=== PATIENT | female | born 1950 | race Caucasian/White ===

== ENCOUNTER 2018-08-03 03:29 | Day surgery (SDC) | payer MEDICARE, OTHER | END 2018-08-03 22:48 | disposition home or self-care (01) | LOC: MOI US 03:29 | PROC: 0HBT3ZX Excision of Right Breast, Percutaneous Approach, Diagnostic (ICD-10-PCS; principal; 2018-08-03) | DX: C50.911 Malignant neoplasm of unspecified site of right female breast (principal) | CPT/HCPCS: 19083; 19084; 77065; 88305; 88360; A4648; G0279 ==

== ENCOUNTER 2018-08-26 11:37 | Day surgery (SDC) | payer MEDICARE, OTHER ==
[~2018-08-26] VITALS: Ht 167.6 cm; Wt 68.6 kg
--- NOTE | 2018-08-26 14:00 | NUR ---
08/26/18 1400 Jace Salguero PATIENT INTO SDU, RESTING IN BED, VSS, WAITING FOR CXR. IMAGING NOTIFIED AT 1340.
== END 2018-08-26 14:25 | disposition home or self-care (01) ==
LOC: ORSCSDS 11:37
PROVIDERS: Surgery
PROC: B544ZZA Ultrasonography of Left Jugular Veins, Guidance (ICD-10-PCS; principal; 2018-08-26 13:00)
PROC: 05HN33Z Insertion of Infusion Device into Left Internal Jugular Vein, Percutaneous Approach (ICD-10-PCS; principal; 2018-08-26 13:00)
DX: C50.411 Malignant neoplasm of upper-outer quadrant of right female breast (principal); Z17.1 Estrogen receptor negative status [ER-]
CPT/HCPCS: 77001; C1788; J0690; J1642; J2001; J2250; J3010; J7120

== ENCOUNTER → 2018-09-09 | Outpatient (CLI) | payer MEDICARE, OTHER ==
[2018-09-09 09:42] LABS: Hematocrit 37.9 % (33.0-51.0); Hemoglobin 12.6 g/dL (11.5-16.0); Mean Corpuscular HGB 33.8 pg (26.0-34.0); Mean Corpuscular HGB Conc 33.2 g/dL (31.5-36.5); Mean Corpuscular Volume 102 fL (80-100); Mean Platelet Volume 10.8 fL (9.1-12.4); Platelet Count 186 K/mm3 (150-400); RDW Coefficient Variation 13.1 % (11.7-14.2); RDW Standard Deviation 48.9 fL (35.1-46.3); Red Blood Cell Count 3.73 M/mm3 (3.80-5.20); White Blood Cell Count 14.22 K/mm3 (4.00-11.30)
[2018-09-09 10:10] LABS: BAND PERCENT MAN 9 % (0-8); BASOPHILS ABSOLUTE MAN 0.14 K/mm3 (0.00-0.23); BASOPHILS PERCENT MAN 1 % (0-2); EOSINOPHILS PERCENT MAN 0 % (0-6); LYMPHOCYTES ABSOLUTE MAN 1.13 K/mm3 (0.84-5.20); LYMPHOCYTES PERCENT MAN 8 % (21-46); METAMYELOCYTE ABSOLUTE MAN 0.42 K/mm3 (0.00-0.00); METAMYELOCYTE PERCENT MAN 3 % (0-0); MONOCYTES ABSOLUTE MAN 0.71 K/mm3 (0.16-1.47); MONOCYTES PERCENT MAN 5 % (4-13); MYELOCYTE ABSOLUTE MAN 0.14 K/mm3 (0.00-0.00); MYELOCYTE PERCENT MAN 1 % (0-0); NEUTROPHILS ABSOLUTE MAN 11.66 K/mm3 (1.96-9.15); SEG NEUTROPHILS PERCENT MAN 73 % (41-73); TOTAL CELLS COUNTED 100
== END | disposition home or self-care (01) ==
LOC: LAB SHORT 09:13 → LAB 09:13
PROVIDERS: Internal Medicine Hematology & Oncology
DX: C50.919 Malignant neoplasm of unspecified site of unspecified female breast (principal); D69.59 Other secondary thrombocytopenia; D70.1 Agranulocytosis secondary to cancer chemotherapy; T45.1X5A Adverse effect of antineoplastic and immunosuppressive drugs, initial encounter; Z17.1 Estrogen receptor negative status [ER-]
CPT/HCPCS: 85025

== ENCOUNTER → 2018-10-20 | Outpatient (CLI) | payer MEDICARE, OTHER | END | disposition home or self-care (01) | LOC: LAB EV 09:53 → LAB SHORT 09:53 | DX: N39.0 Urinary tract infection, site not specified (principal) | CPT/HCPCS: 87077; 87086; 87186 ==

== ENCOUNTER 2019-03-30 11:41 | Day surgery (SDC) | payer MEDICARE, OTHER ==
[~2019-03-30] VITALS: Ht 165.1 cm; Wt 59.8 kg
[~2019-03-30 11:41] MED LIST: ANAS1 PO; CAPE500; CULTURELLE1 EACH PO
== END 2019-03-30 13:42 | disposition home or self-care (01) ==
LOC: ORSCSDS 11:41
PROVIDERS: Surgery
PROC: 0DJD8ZZ Inspection of Lower Intestinal Tract, Via Natural or Artificial Opening Endoscopic (ICD-10-PCS; principal; 2019-03-30 13:00)
DX: Z12.11 Encounter for screening for malignant neoplasm of colon (principal); K57.30 Diverticulosis of large intestine without perforation or abscess without bleeding; Z86.010 Personal history of colon polyps
CPT/HCPCS: J2704; J7120

== ENCOUNTER 2021-05-18 15:11 | Emergency (ER) | payer MEDICARE, OTHER ==
[~2021-05-18] VITALS: Ht 167.6 cm; Wt 56.7 kg
[~2021-05-18 15:11] MED LIST changes: +LETROZOLE2.5 MG PO; +XARELTO15 MG PO; +ZOLEDRONIC ACID IV
[2021-05-18] MEDS ORDERED: ELIQUIS5 M2 PO (17:02)
== END 2021-05-18 17:18 | disposition home or self-care (01) ==
LOC: ER 15:11
DX: I82.622 Acute embolism and thrombosis of deep veins of left upper extremity (principal); Z79.899 Other long term (current) drug therapy; Z88.1 Allergy status to other antibiotic agents
CPT/HCPCS: 99283-25; A9270

== ENCOUNTER 2021-07-18 17:54 | Emergency (ER) | payer MEDICARE, OTHER ==
[~2021-07-18] VITALS: Ht 167.6 cm; Wt 52.2 kg
[~2021-07-18 17:54] MED LIST changes: +ELIQUIS5 M2 PO
[2021-07-18] MEDS ORDERED: XARELTO20 M1 PO (19:32)
[2021-07-18] MEDS ORDERED: OXYC10TA19 PO (19:32)
[2021-07-18] MEDS ORDERED: DOCU100 PO (19:33)
[2021-07-18] MEDS ORDERED: CIPR500 PO (19:33)
[2021-07-18] MEDS ORDERED: DECADRON4 M2 PO (19:34)
== END 2021-07-18 23:07 | disposition home or self-care (01) ==
LOC: ER 17:54
DX: K59.00 Constipation, unspecified (principal); Z88.1 Allergy status to other antibiotic agents
CPT/HCPCS: 99284

== ENCOUNTER 2021-08-23 10:01 | Day surgery (SDC) | payer MEDICARE, OTHER ==
[~2021-08-23 10:01] MED LIST changes: +CIPR500 PO; +DECADRON4 M2 PO; +DOCU100 PO; +OXYC10TA19 PO; +XARELTO20 M1 PO
== END 2021-08-23 12:20 | disposition home or self-care (01) ==
LOC: ATC 10:01
DX: C50.411 Malignant neoplasm of upper-outer quadrant of right female breast (principal); Z88.1 Allergy status to other antibiotic agents
CPT/HCPCS: 36569; C1751

== ENCOUNTER 2021-08-27 02:38 | Day surgery (SDC) | payer MEDICARE, OTHER | END 2021-08-27 23:17 | disposition home or self-care (01) | LOC: WOUND 02:38 | DX: L89.150 Pressure ulcer of sacral region, unstageable (principal); C50.919 Malignant neoplasm of unspecified site of unspecified female breast; Z86.718 Personal history of other venous thrombosis and embolism; Z92.21 Personal history of antineoplastic chemotherapy; Z79.01 Long term (current) use of anticoagulants | CPT/HCPCS: A9270 ==

== ENCOUNTER 2021-09-03 01:26 | Day surgery (SDC) | payer MEDICARE, OTHER | END 2021-09-03 23:31 | disposition home or self-care (01) | LOC: WOUND 01:26 | DX: L89.150 Pressure ulcer of sacral region, unstageable (principal); C50.919 Malignant neoplasm of unspecified site of unspecified female breast; I82.B12 Acute embolism and thrombosis of left subclavian vein; Z79.01 Long term (current) use of anticoagulants | CPT/HCPCS: A9270 ==

== ENCOUNTER 2021-09-10 02:54 | Day surgery (SDC) | payer MEDICARE, OTHER | END 2021-09-10 23:40 | disposition home or self-care (01) | LOC: WOUND 02:54 | DX: L89.154 Pressure ulcer of sacral region, stage 4 (principal) | CPT/HCPCS: A9270 ==

== ENCOUNTER 2021-09-17 05:47 | Day surgery (SDC) | payer MEDICARE, OTHER | END 2021-09-17 23:30 | disposition home or self-care (01) | LOC: WOUND 05:47 | DX: L89.154 Pressure ulcer of sacral region, stage 4 (principal); C50.919 Malignant neoplasm of unspecified site of unspecified female breast; I82.B12 Acute embolism and thrombosis of left subclavian vein; Z79.01 Long term (current) use of anticoagulants | CPT/HCPCS: A9270; G0463 ==

== ENCOUNTER 2021-09-24 02:16 | Day surgery (SDC) | payer MEDICARE, OTHER | END 2021-09-24 22:46 | disposition home or self-care (01) | LOC: WOUND 02:16 | DX: L89.150 Pressure ulcer of sacral region, unstageable (principal); C50.919 Malignant neoplasm of unspecified site of unspecified female breast; I82.B12 Acute embolism and thrombosis of left subclavian vein | CPT/HCPCS: A9270 ==

== ENCOUNTER 2021-10-08 01:58 | Day surgery (SDC) | payer MEDICARE, OTHER | END 2021-10-08 23:31 | disposition home or self-care (01) | LOC: WOUND 01:58 | DX: L89.154 Pressure ulcer of sacral region, stage 4 (principal); C50.919 Malignant neoplasm of unspecified site of unspecified female breast; Z86.718 Personal history of other venous thrombosis and embolism; Z79.01 Long term (current) use of anticoagulants | CPT/HCPCS: A9270 ==

== ENCOUNTER 2021-10-10 15:13 | Inpatient (IN) | payer MEDICARE, OTHER ==
[~2021-10-10] VITALS: Ht 167.6 cm; Wt 57.1 kg
[2021-10-10] MEDS ORDERED: TRAM50 PO (16:07)
[2021-10-10 16:09] LABS: Hematocrit 35.7 % (33.0-51.0); Hemoglobin 11.2 g/dL (11.5-16.0); Mean Corpuscular HGB 33.9 pg (26.0-34.0); Mean Corpuscular HGB Conc 31.4 g/dL (31.5-36.5); Mean Corpuscular Volume 108 fL (80-100); Mean Platelet Volume 9.4 fL (9.1-12.4); NRBC ABSOLUTE 0.02 K/mm3 (0.00-0.02); NRBC Auto 0.2 /100 WBC (0.0-0.2); Platelet Count 541 K/mm3 (150-400); RDW Coefficient Variation 17.2 % (11.7-14.2); RDW Standard Deviation 66.6 fL (35.1-46.3)
[2021-10-10 16:23] LABS: Alanine Aminotransfer (ALT/SGP 13 U/L (12-78); Albumin, Blood 2.4 g/dL (3.4-5.0); Albumin/Globulin Ratio 0.7 (0.8-1.8); Alk Phos 775 U/L (50-136); Anion Gap 7 mmol/L (6-16); Aspartate Aminotrans (AST/SGOT 25 U/L (12-37); Bilirubin, Total 0.4 mg/dL (0.1-1.0); Blood Urea Nitrogen 50 mg/dL (8-24); Bun/Creatinine Ratio 60.1 (12.0-20.0); CO2, Blood 26 mmol/L (21-32); Calcium, Blood 8.4 mg/dL (8.5-10.1); Chloride, Blood 102 mmol/L (98-108); Creatinine, Blood 0.83 mg/dL (0.40-1.00); Globulin, Blood 3.5 g/dL (2.2-4.0); Glomerular Filtration Rate >60 (60-); Glucose, Blood 194 mg/dL (70-99); Potassium, Blood 4.4 mmol/L (3.5-5.5); Sodium, Blood 135 mmol/L (136-145); Total Protein, Blood 5.9 g/dL (6.4-8.2)
[2021-10-10 16:32] LABS: BAND PERCENT MAN 2 % (0-8); BASOPHILS PERCENT MAN 0 % (0-2); EOSINOPHILS PERCENT MAN 0 % (0-6); LYMPHOCYTES ABSOLUTE MAN 0.23 K/mm3 (0.84-5.20); LYMPHOCYTES PERCENT MAN 2 % (21-46); METAMYELOCYTE ABSOLUTE MAN 0.11 K/mm3 (0.00-0.00); METAMYELOCYTE PERCENT MAN 1 % (0-0); MONOCYTES ABSOLUTE MAN 0.11 K/mm3 (0.16-1.47); MONOCYTES PERCENT MAN 1 % (4-13); MYELOCYTE ABSOLUTE MAN 0.23 K/mm3 (0.00-0.00); MYELOCYTE PERCENT MAN 2 % (0-0); NEUTROPHILS ABSOLUTE MAN 10.99 K/mm3 (1.96-9.15); SEG NEUTROPHILS PERCENT MAN 92 % (41-73); TOTAL CELLS COUNTED 100
[2021-10-10 16:56] LABS: International Normalized Ratio 1.22; Prothrombin Time Results 12.6 Sec (9.7-11.5)
[2021-10-10] MEDS ORDERED: JUVEN PACKET1 EAC3 PO (20:39)
[2021-10-11 03:51] LABS: Hematocrit 31.3 % (33.0-51.0); Hemoglobin 10.3 g/dL (11.5-16.0); Mean Corpuscular HGB 34.3 pg (26.0-34.0); Mean Corpuscular HGB Conc 32.9 g/dL (31.5-36.5); Mean Corpuscular Volume 104 fL (80-100); Mean Platelet Volume 9.3 fL (9.1-12.4); NRBC ABSOLUTE 0.02 K/mm3 (0.00-0.02); NRBC Auto 0.1 /100 WBC (0.0-0.2); Platelet Count 490 K/mm3 (150-400); RDW Standard Deviation 64.4 fL (35.1-46.3); White Blood Cell Count 13.48 K/mm3 (4.00-11.30)
[2021-10-11 04:06] LABS: International Normalized Ratio 1.11; Prothrombin Time Results 11.6 Sec (9.7-11.5)
[2021-10-11 04:15] LABS: Alanine Aminotransfer (ALT/SGP 10 U/L (12-78); Albumin, Blood 2.1 g/dL (3.4-5.0); Albumin/Globulin Ratio 0.7 (0.8-1.8); Alk Phos 655 U/L (50-136); Anion Gap 8 mmol/L (6-16); Aspartate Aminotrans (AST/SGOT 21 U/L (12-37); Bilirubin, Total 0.3 mg/dL (0.1-1.0); Blood Urea Nitrogen 45 mg/dL (8-24); Bun/Creatinine Ratio 59.3 (12.0-20.0); CO2, Blood 26 mmol/L (21-32); Calcium, Blood 7.7 mg/dL (8.5-10.1); Chloride, Blood 101 mmol/L (98-108); Creatinine, Blood 0.76 mg/dL (0.40-1.00); Globulin, Blood 3.1 g/dL (2.2-4.0); Glomerular Filtration Rate >60 (60-); Glucose, Blood 146 mg/dL (70-99); Magnesium, Blood 2.1 mg/dL (1.6-2.4); Phosphorus, Blood 3.2 mg/dL (2.5-4.9); Potassium, Blood 3.9 mmol/L (3.5-5.5); Sodium, Blood 135 mmol/L (136-145); Total Protein, Blood 5.2 g/dL (6.4-8.2)
[2021-10-11 04:37] LABS: BASOPHILS PERCENT MAN 0 % (0-2); EOSINOPHILS PERCENT MAN 0 % (0-6); LYMPHOCYTES ABSOLUTE MAN 0.26 K/mm3 (0.84-5.20); LYMPHOCYTES PERCENT MAN 2 % (21-46); MONOCYTES ABSOLUTE MAN 0.53 K/mm3 (0.16-1.47); MONOCYTES PERCENT MAN 4 % (4-13); NEUTROPHILS ABSOLUTE MAN 12.67 K/mm3 (1.96-9.15); SEG NEUTROPHILS PERCENT MAN 94 % (41-73); TOTAL CELLS COUNTED 100
--- NOTE | 2021-10-11 07:25 | NUR ---
PT ADMITTED FOR HYPOXIA SECONDARY TO FINDINGS OF LARGE LEFT PLEURAL INFUSION, GREATER THAN ON PRIOR XRAYS. 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 UPON TRANSFER TO PCU 14, MRS. HOLDEN WAS ON 6 LPM NC. HER OXYGEN WAS TIRATED DOWN TO 3 LPM NC BY THE END OF FISHER NET, AND HER SPO2 HAS BEEN CONSISTENT IN THE 93-94% RANGE. TRAMADOL ADMINISTERED ORDERED PRN FOR C/O OF PAIN TO AREA OF SACRAL WOUND. PT DID MAKE TWO ATTEMPTS LAST NIGHT TO URINATE USING THE BEDSIDE COMMODE. BOTH ATTEMPTS FAILED AND A GILBERT CATHETER WAS PLACED FOR ACUTE URINE RETENTION. PT DOES BECOME DYSPNEIC WITH MINIMAL EXERTION AND I ADVISED THE PT THAT THE URINARY CATHETER WILL ALSO AID IN PRESERVING HER ENERGY WELL STRESSON HER HEART AND LUNGS. PT WAS HESITANT ABOUT THE GILBERT PLACEMENT BUT EVENTUALLY AGREED. 825 ML OF URINE WAS EMPTIED FROM THE BLADDER IMMEDIATELY UPON PLACEMENT OF THE CATHETER. WOUND VAC IN PLACE FOR SACRAL DECUBITUS ULCER. WOUND VAC DRESSING WAS JUST CHANGED BY PT'S HOME HEALTH NURSE ON TUESDAY 10/10. 125 MMHG CONTINOUS SETTING. LEFT ARM IS SEVERELY EDEMATOUS, FLACCID AND QUITE PAINFUL WITH ANY PASSIVE MOVEMENT. PT DOES HAVE WOUND TO THE LEFT AXILLA THAT IS DIFFICULT TO VISUALIZE. CLEANED WOUND BEST I COULD AND APPLIED SOME GAUZE TO CATCH ANY SEROSANGINOUS DRAINAGE. REPORT PASSED ON TO DAYSHIFT AMBREEN DIEZ, INCLUDING REQUEST FOR ORDER TO START PATIENT'S HOME JUANA BID AND MEDICATIONS FOR BOWEL REGIMEN.
[2021-10-11 09:02] LABS: Source, Urine Straight Cath
[2021-10-11 09:21] LABS: Appearance, Urine Clear (Clear); Bilirubin, Urine Neg (Neg); Blood, Urine 1+ (Neg); Color, Urine Yellow (P-Yellow); Glucose Qualitative, Urine Neg (Neg); Ketones, Urine 2+ (Neg); Leukocyte Esterase, Urine 1+ (Neg); Nitrite, Urine Neg (Neg); Protein, Urine 2+ (Neg); Urobilinogen, Urine NORM (Normal)
[2021-10-11 10:28] LABS: Bacteria Rare /hpf; Red Blood Cells, Urine 0-2 /hpf (0-2); Squamous Epithelial Cells Rare /hpf (Few)
--- NOTE | 2021-10-11 13:51 | NUR ---
Spoke with Dr Lopez earlier this AM and discussed case. Pt and family may benefit from conversation regarding advanced care planning. Pt resting in bed upon arrival. Initially just spouse Randal at bedside and then Pt's daughter and son in law arrive. Pt reports 3/10 pain in her left shoulder. Pt denies dyspnea and anxiety at this time. Pt appears weak and frail. Pt reports living at home with her . Pt reports no longer having the ability or strength to do the things she enjoys doing. Assessed Pt and spouse's understanding of Pt's cancer. Spouse initially reports not being told by oncologist that cancer has metasticized but had his suspicions from reading the reports. Gentle education on disease process including trajectory of disease. Discussed the importance of conversations amongst Pt and family regarding goals and values. Discussed hospice as an option if Pt ever no longer seeks treatment. Offered therapeutic listening and answered questions. Pt and family express appreciation and report no other concerns at this time. Provided Palliative Care contact information per Pt's request. Palliative Care will remain available.
--- NOTE | 2021-10-11 17:36 | NUR ---
DR DIAZ AND PALLIATIVE CARE VISITED WITH PT AND HER AND FAMILY TODAY TO DISCUSS GOALS OF CARE. SEE NOTES FROM EACH DISIPLINE FOR DETAILS. PT HAD NO COMPLAINTS T/O THE DAY, OXYGEN DEMANDS HAVE INCREASED FROM 4L TO 6L. PT HAD THORACENTESIS WITH 1.2L REMOVED FROM L SIDE PLEURAL EFFUSION, RESULTING IN A SMALL PNEUMOTHORAX THAT HAS BEEN TRACKED THROUGHOUT THE DAY BY SERIAL XRAYS AND HAS NOT INCREASED IN SIZE. THIS RN HAS BEEN MONITORING PT'S WOB AND PULSE OX CLOSELY FOR ANY S/SX OF RESP DISTRESS. PT'S IS VERY HELPFUL WITH CARE AND ASSISTS THE PT IN ANY WAY THAT HE CAN. CALL LIGHT IN REACH, WILL CONTINUE TO MONITOR AND GIVE REPORT TO NOC SHIFT RN.
--- NOTE | 2021-10-12 09:09 | NUR ---
Supportive visit this AM. Dr Olvera just finishing visiting with Pt and family. Pt resting in bed with family at bedside. Pt denies pain at this time. Offered therapeutic listening and answered questions. Family express appreciation. Spoke with Primary RN Rain and discussed case. Palliative Care will remain available.
--- NOTE | 2021-10-12 17:51 | NUR ---
SHIFT NOTE WOUND VAC DRESSING CHANGED THIS AM, FAMILY EDUCATED ABOUT PROCESS. PT ALERT, SLOW TO RESPOND, HAS HER ANSWER FOR HER OFTEN. WOUNDS NOTED TO SACRUM AND LT ARMPIT, SKIN TEAR TO LT KNEE WHICH WERE REDRESSED TODAY. PT REMAINS ON 5L O2 VIA NASAL CANNULA, SPO2 MID 90s. SHORT IN INTERVAL NOTED ON MONITOR BUT IS UNCHANGED T/O THIS SHIFT. LS REMAIN DIM IN RLL. AFEBRILE T/O THE DAY. VSS. DENIES CP AND SOB. PT DID WORK IT OT TODAY. LT ARM EDEMA WITH OCCASIONAL WEAPING. PALLIATIVE CARE AND HOME HEALTH IN TO SEE PT AND FAMILY TO ANSWER QUESTIONS, FAMILY BECAME UPSET WITH HOME HEALTH STATED THEY FELT THAT THEY WERE BEING PUSHED TO MAKE DECISIONS. S/O REMAINS AT BEDSIDE T/O DAY AND NIGHT
[2021-10-13 04:09] LABS: BASOPHILS ABSOLUTE AUTO 0.01 K/mm3 (0.00-0.23); BASOPHILS PERCENT AUTO 0 % (0-2); EOSINOPHILS ABSOLUTE AUTO 0.01 K/mm3 (0.00-0.68); EOSINOPHILS PERCENT AUTO 0 % (0-6); Hematocrit 32.8 % (33.0-51.0); Hemoglobin 10.5 g/dL (11.5-16.0); Mean Corpuscular HGB 33.5 pg (26.0-34.0); Mean Corpuscular Volume 105 fL (80-100); Mean Platelet Volume 9.5 fL (9.1-12.4); Platelet Count 362 K/mm3 (150-400); RDW Coefficient Variation 16.7 % (11.7-14.2); RDW Standard Deviation 63.8 fL (35.1-46.3); Red Blood Cell Count 3.13 M/mm3 (3.80-5.20); White Blood Cell Count 11.37 K/mm3 (4.00-11.30)
[2021-10-13 04:15] LABS: IMMATURE GRAN ABSOLUTE AUTO 0.12 K/mm3 (0.00-0.10); IMMATURE GRAN PERCENT AUTO 1 % (0-1); LYMPHOCYTES ABSOLUTE AUTO 0.28 K/mm3 (0.84-5.20); LYMPHOCYTES PERCENT AUTO 3 % (21-46); MONOCYTES ABSOLUTE AUTO 0.06 K/mm3 (0.16-1.47); MONOCYTES PERCENT AUTO 1 % (4-13); NEUTROPHILS ABSOLUTE AUTO 10.89 K/mm3 (1.96-9.15); NEUTROPHILS PERCENT AUTO 96 % (41-73)
[2021-10-13 04:21] LABS: Albumin, Blood 2.1 g/dL (3.4-5.0); Anion Gap 8 mmol/L (6-16); Blood Urea Nitrogen 33 mg/dL (8-24); Bun/Creatinine Ratio 55.9 (12.0-20.0); CO2, Blood 27 mmol/L (21-32); Calcium, Blood 8.1 mg/dL (8.5-10.1); Chloride, Blood 102 mmol/L (98-108); Creatinine, Blood 0.59 mg/dL (0.40-1.00); Glomerular Filtration Rate >60 (60-); Glucose, Blood 122 mg/dL (70-99); Magnesium, Blood 2.3 mg/dL (1.6-2.4); Phosphorus, Blood 2.2 mg/dL (2.5-4.9); Potassium, Blood 3.7 mmol/L (3.5-5.5); Sodium, Blood 137 mmol/L (136-145)
--- NOTE | 2021-10-13 05:30 | NUR ---
SHIFT SUMMARY PT ALERT AND ORIENTED. SLOW TO RESPOND, SHORT ANSWERS. SPOUSE IN ROOM HELPING WITH ADL'S AND Q2 TURNS. PT LOOKS TO SPOUSE FOR COMMUNICATION. AFEBRILE. ST 100'S-120'S. BP SOFT POST PARACENTESIS, MAP REMAINS OVER 65. ON HIFLO NC 6L, SATS OVER 97%. C/O GENERAL PAIN 4/10, MEDICATED PER EMAR. GILBERT IN PLACE DRAINING YELLOW URINE TO GRAVITY. WOUND VAC IN PLACE. IN BED SLEEPING WITH CALL ALARM AT SIDE. WILL CONTINUE TO MONITOR UNTIL REPORT GIVEN TO DAYSHIFT RN
--- NOTE | 2021-10-13 09:00 | NUR ---
UPON PERFORMING MORNING ASSESSMENT IT WAS NOTED THAT PT'S IV HAD BEEN PULLED, THERE WAS NO ACTIVE BLEEDING. PT IS EDUCATED ABOUT THE IV BEING REMOVED AND STS THAT SHE WOULD NOT LIKE FOR IT TO BE REPLACED. PT ALSO REFUSED HER MORNING MEDICATIONS. DR TSAI IS CALLED AND NEW ORDERS WERE OBTAINED FOR ORAL ANTIBIOTICS. S/O ALSO EXPRESSED CONCERN ABOUT CONSTIPATION, PT ALSO HAS NOT HAD ANY SUBSTANTIAL PO INTAKE SINCE ADMISSION, S/O STS THAT BOWEL REGIMEN DOES NOT WORK AND STS THAT MANUALLY REMOVING STOOL SHOULD BE CONSIDERED, DR TSAI IS ALSO UPDATED ABOUT FAMILY'S CONCERNS ABOUT BOWEL CARE.
--- NOTE | 2021-10-13 18:32 | NUR ---
SHIFT NOTE PT WAS TRANSITIONED TO COMFORT CARE DURING SHIFT. PT DID RECIEVE TRAMADOL ONCE TODAY FOR PAIN, NO ACCESS SECRETIONS AT THIS TIME, O2 REMAINS IN PLACE. FAMILY DOES ASK ABOUT O2 NEED, WHEN EDUCATED THEY DECIDED THAT O2 SHOUDL REMAIN IN PLACE, BUT FAMILY AND PT ARE REMINDED THAT AT ANY TIME IF THEY WISH FOR O2 TO BE REMOVED IT CAN BE REMOVED. AT THE TIME OF THIS NOTE PT IS VERY DROWSY, DOES WAKE TO VERBAL STIMULI BUT IS VERY MINIMALLY INTERACTIVE. PT IS REPOSITIONED FOR COMFORT,DRESSING TO ARM REPLACED. SPOUSE REMAINS AT BEDSIDE.
--- NOTE | 2021-10-14 06:07 | NUR ---
SHIFT SUMMARY PT SLEEPING COMFORTABLY SINCE SHIFT CHANGE UP TO MORNING TIME AROUND 0445. C/O PAIN AND ANXIETY, MEDICATED PER EMAR. SPOUSE IN ROOM, ASSIST WITH ADL'S. REMAINS ON OXYGEN FOR COMFORT. PT RESTING W/ NO PAIN AT THIS TIME. IN BED WITH CALL ALARM AND SPOUSE AT SIDE
--- NOTE | 2021-10-14 08:08 | NUR ---
AM NOTE COMFORT CARE PT APPEARS TO SLEEPING, WAKES TO VERBAL STIMULI. WHEN ASKED PT DENIES PAIN, NAUSEA, DIZZINESS, SOB AND NUMB/TINGLING. NO S/SX OF DISTRESS NOTED. HEART SOUND REGULAR. LS CLEAR T/O, RESP RATE 20. BS HYPOACTIVE x4 QUAD, SOFT NON TENDER. SPOUSE AT BEDSIDE, STATES THE PATIENT LOOK COMFORTABLE AT THIS TIME. REPOISITIONED AND BOOSTED IN BED, ATTEND CLEAR AND DRY. SPOUSE REQUESTING "CLEAN UP" DURING DAY. WILL CONTINUE TO MONITOR.
--- NOTE | 2021-10-14 10:40 | NUR ---
PT CONTINUES TO BE RESTING IN BED, APPEARS TO BE SLEEPING. REST RATE 20'S. NO S/SX OF DISTRESS NOTED. WILL CONTINUE TO MONITOR.
--- NOTE | 2021-10-14 18:36 | NUR ---
THIS EVENING PT DENIES PAIN HOWEVER IS MOAN WITH TOUCH AND MOVEMENT, MEDICATED WITH ROXANOL 5MG PO; PT REPORTS PAIN AND ATTEMPTS TO PULL OFF GOWN AND PULL OUT CATHETER, GRIMACING, RESTLESS/AGGITATED AND VERY TENSE; ADDITIONAL 10MG GIVEN; PT RESTING AT THIS TIME, APPEARS TO BE SLEEPING. NO OTHER S/SX OF DISTRESS NOTED. WILL CONTINUE TO MONITOR.
--- NOTE | 2021-10-15 05:42 | NUR ---
SHIFT SUMMARY PT ALERT AND ORIENTED X4. COMFORT CARE. ORAL CARE FOR DRY MOUTH. REPOSITIONING FOR COMFORT. LEFT ARM STILL OOZING, ABSORBANT PAD CHANGED. SPOUSE IN ROOM, ASSISTING WITH ADLS. C/O PAIN EARLY ON IN THE SHIFT, MEDICATED PER EMAR. ASLEEP SINCE MIDNIGHT. ASLEEP WITH SPOUSE SLEEPING BY SIDE, WILL CONTINUE TO MONITOR UNTIL REPORT GIVEN TO DAYSHIFT RN
--- NOTE | 2021-10-15 07:27 | NUR ---
AM NOTE PT APPEARS TO BE SLEEPING. GROANS WITH TACTILE STIMULI. PUPIL 2MM EQUAL AND REACTIVE. NO S/SX OF DISTRESS NOTED. HEART REGULAR, FAINT PULSES T/O. SL CLEAR ON RIGHT SIDE, DIMINISHED TO LEFT SIDE, 6L O2 VIA HFNC; RESP RATE 22. BS HYPOACTIVE x4 QUAD THIS AM, SPOUSE STATES NO BM SINCE PREVIOUS SUNDAY 10/08. SCABS SCATTERED T/O. WOUND VAC C/D/I TO SACRUM. WOUND TO LEFT INNER LEFT ARM NOTED. LEFT ARM EDEMA, WEEPING. WILL CONTINUE TO MONITOR.
--- NOTE | 2021-10-15 07:30 | NUR ---
LATE ENTRY 0730 PT APPEARS TO BE SLEEPING. DENIES PAIN WHEN ASKED. NO S/SX OF DISTRESS NOTED. PT WAKES TO LOUD VERBAL STIMULI AND QUICKLY FALLS BACK TO SLEEP. HR REGULAR. LS CLEAR T/O DIM BASES, RESP RATE 18-22, BREATHING EVEN AND UNLABORED. PT BS HYPOACTIVE x4 QUAD, SPOUSE REPORTS NO BM SINCE 10/08/21 AND MINIMAL INTAKE SINCE THEN; NOTIIFED DR JUDSON DR TO PLACE ORDERS. ORAL CARE COMPLETED. LEFT ARM EDEMA, WEEPING. RIGHT ELBOW EDEMA NOTED. SCAATERED SCABS PRESENT. OPEN AREA UNDER LEFT ARM. WOUND VAC TO SACRUM. NO OTHER ACUTE CHANGES. WILL CONTINUE TO MONITOR.
--- NOTE | 2021-10-15 09:30 | NUR ---
PT RESTLESS, TEARFUL. MEDCIATED WITH ATIVAN. WILL CONTINUE TO MONITOR.
--- NOTE | 2021-10-15 11:22 | NUR ---
Received referral from [facility] Proof Load Mechanic (Shaylee Spaulding) on 10/15/2021. Patient is to discharge with orders for hospice and family elected [facility]. Gathered supporting documentation for referral (face sheet, labs, imaging, progress notes, palliative care note, and H&P) and sent to [facility] Hospice truck chauffeur (Jose Askew) for review of hospice appropriateness and ability to accept patient onto service post discharge. Will await further information from hospice truck chauffeur regarding the above. Neva Landers Referral Liaison
--- NOTE | 2021-10-15 13:00 | NUR ---
NOTIFIED JUDSON OF NO BM; NEW ORDER FOR DULCOLAX 10 MG CO DAILY PRN FOR CONSTIPATION. MEDICATED PT WITH ROXANOL 10 MG FOR PAIN AND INCREASED RESP RATE. SUPPOSITORY GIVEN. PT REPOSITIONED. PT REFUSING TO OPEN MOUTH FOR ORAL CARE. WILL CONTINUE TO MONITOR.
--- NOTE | 2021-10-15 17:01 | NUR ---
Received notification from [facility] Clinical Coordinator (Joy Stevens) that patient is hospice appropriate and able to be accepted onto service post discharge. Will attempt to meet with patient and family tomorow to further discuss the above. Will continue to monitor and follow for discharge. Neva Landers Referral Liaison
--- NOTE | 2021-10-15 18:32 | NUR ---
PT BECAME PAINFUL AND AGGITATED THIS EVENING, MEDICATED PER EMAR. PT APPEARS TO BED RESTING COMFORTABLY. FAMILY SUPPORT AT BEDSIDE. PT REFUSING ORAL CARE THIS EVENING. WILL CONTINUE TO MONITOR.
--- NOTE | 2021-10-15 19:00 | NUR ---
ASSUMPTION OF CARE COMFORT CARE REPORT RECIEVED FROM DAY SHIFT RN. PATIENT APPEARS TO BE RESTING IN BED COMFORTABLY WITH EYES CLOSED. FAMILY AT BEDSIDE. FAMILY DENIES NEEDS AT THIS TIME. CALL LIGHT IN REACH, BED IN LOW POSITION.
--- NOTE | 2021-10-16 05:58 | NUR ---
SHIFT SUMMARY COMFORT CARE PATIENT HAS SLEPT DURING THE SHIFT. WINCES/GROANS WITH REPOSITIONING BUT OTHERWISE DOES NOT OPEN EYES TO STIMULI. MEDICATED PER EMAR FOR PAIN AND AIR HUNGER. O2 IN PLACE FOR COMFORT. GILBERT PATENT AND DRAINING TO GRAVITY WITH SOME SEDIMENT. REPOSITIONED Q4 PER PATIENT/FAMILY REQUEST. LEFT ARM ON DRY CHUX DUE TO WEEPING. AT BEDSIDE T/O NIGHT. COMFORT CARE CART COFFEE REPLENISHED. NO OTHER SIGNIFICANT CHANGES, WILL REPORT TO DAY SHIFT RN.
--- NOTE | 2021-10-16 06:27 | NUR ---
UPDATE PATIENT WEARING 7L O2. SPOKE WITH ABOUT POSSIBILITY OF TITRATING PATIENT TO A MORE COMFORTABLE AMOUNT OF OXYGEN. EDUCATED PATIENT'S ON COMFORT CARE MEASURES. PATIENT'S AGREED THAT THE CURRENT AMOUNT OF OXYGEN IS TOO HIGH. TITRATED O2 DOWN TO 3L. MEDICATED PER EMAR TO ASSIST WITH TITRATION. PATIENT CONTINUES TO SLEEP COMFORTABLY.
--- NOTE | 2021-10-16 08:10 | NUR ---
AM NOTE PT RESTING IN BED. APPEARS TO BE SLEEPING. NO S/SX OF DISTRESS NOTED AT THIS TIME. PT LS COARSE; MEDICATED WITH ATROPINE PER ORDERS. PT PAINFUL WITH MOVEMENT, APPLIED FENTANYL PATCH PLACED PER ORDERS. HEART IRREGULAR. BS HYPOACTIVE x4 QUAD, SOFT BUT TENDER. PT HAS WEEPING EDEMA TO LEFT ARM; DEPENDENT EDEMA TO RIGHT ELBOW. EXTREMEITES ELEVATED. PT WOUND VAC TO SACRUM. SPOUSE AT BEDSIDE. WILL CONTINUE TO MONITOR.
--- NOTE | 2021-10-16 15:59 | NUR ---
Comfort Care Visit Pt resting in bed with her eyes closed. Pt appears comfortable with no S/S of distressed at this time. Pt left undisturbed at this time. Pt's spouse and Pt's daughter at bedside. Offered therapeutic listening. Family express appreciation and report no other concerns at this time. Spoke with Primary RN Belinda and discussed case. Palliative Care will remain available.
--- NOTE | 2021-10-16 19:41 | NUR ---
SHIFT SUMMARY PT RESTING IN BED, APPEARS TO BE SLEEPING. RESP RATE TRENDING DOWN T/O SHIFT, 8-12 THIS EVENING. COARSE BREATHING NOTED, ATTEMPTED ATROPINE DROPS BUT WORSENED, PLACED SCOPOLAMINE PATCH. REMOVED WOUND VAC AND REPLACED WITH WET TO DRY DRESSING. PREMEDICATED WITH ROXANOL FOR LARGE REPOSITIONING AND TYLENLOL SUPPOSITORY. NO OTHER ACUTE CHANGES NOTED. REPORT GIVEN TO ONCOMING RN.
--- NOTE | 2021-10-17 01:41 | NUR ---
FINAL DISCHARGE CAME TO THIS NURSE AND STATED THAT THE PATIENT HAD . THIS RN AT BEDSIDE TO CONFIRM, BRIDGE/STRUCTURE INSPECTION TEAM LEADER ASSISTING WITH CONFIRMATION. TIME OF 0044. POST MORTEM CARE COMPLETED. TOOK ALL OF PATIENT'S BELONGINGS WITH HIM UPON LEAVING.
--- NOTE | 2021-10-17 13:57 | NUR ---
Review of patient's records indicate that patient passsed away early this morning. Notified [facility] Intake SWITCHBOARD INSTALLER and [facility] of the above. No further interventions required. Neva Landers Referral Liaison
== END 2021-10-17 02:47 | DRG 180 ==
LOC: ER 15:13 → PCU 19:41
PROVIDERS: Emergency Medicine; Family Medicine; ADMIT Family Medicine
PROC: 0W9B3ZZ Drainage of Left Pleural Cavity, Percutaneous Approach (ICD-10-PCS; principal; 2021-10-11)
DX: C78.02 Secondary malignant neoplasm of left lung (principal); J96.01 Acute respiratory failure with hypoxia; J93.9 Pneumothorax, unspecified; E44.0 Moderate protein-calorie malnutrition; Z66 Do not resuscitate; Z51.5 Encounter for palliative care; J91.0 Malignant pleural effusion; C77.9 Secondary and unspecified malignant neoplasm of lymph node, unspecified; Z68.1 Body mass index [BMI] 19.9 or less, adult; C79.51 Secondary malignant neoplasm of bone; R64 Cachexia; E87.1 Hypo-osmolality and hyponatremia; D72.829 Elevated white blood cell count, unspecified; E88.9 Metabolic disorder, unspecified; L89.159 Pressure ulcer of sacral region, unspecified stage; D63.0 Anemia in neoplastic disease; C78.01 Secondary malignant neoplasm of right lung; Z88.8 Allergy status to other drugs, medicaments and biological substances; Z88.1 Allergy status to other antibiotic agents; Z79.899 Other long term (current) drug therapy; Z90.89 Acquired absence of other organs; Z98.890 Other specified postprocedural states; Z90.710 Acquired absence of both cervix and uterus; Z85.3 Personal history of malignant neoplasm of breast; Z90.10 Acquired absence of unspecified breast and nipple; Z86.711 Personal history of pulmonary embolism; Z92.21 Personal history of antineoplastic chemotherapy; Z28.1 Immunization not carried out because of patient decision for reasons of belief or group pressure
CPT/HCPCS: 32555; 36415; 71045; 80053; 80069; 81001; 82330; 83735; 84100; 85025; 85610; 85730; 87040; 87086; 93005; 93010; 94760; 94762; 97112; 97166; 97530; 99285-25; A9270; J0696; J1170; J1650